=== PATIENT | male | born 1945 | race Caucasian/White ===

== ENCOUNTER 2017-04-21 14:08 | Emergency (ER) | payer MEDICARE ==
[~2017-04-21] VITALS: Ht 177.8 cm; Wt 65.8 kg
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
--- NOTE | 2017-04-21 14:54 | NUR ---
MD FIERRO AT BEDSIDE
--- NOTE | 2017-04-21 15:00 | NUR ---
PAGEH[facility] LICONA, TRANSFERRED CALL TO
--- NOTE | 2017-04-21 15:29 | NUR ---
AMBULANCE ETA [phone]
--- NOTE | 2017-04-21 15:54 | NUR ---
REPORT GIVEN TO RN FROM SN[facility]
[2017-04-21 15:55] VITALS: BP 130/80
== END 2017-04-21 15:56 | disposition home or self-care (01) ==
LOC: ER 14:13
DX: Z46.59 Encounter for fitting and adjustment of other gastrointestinal appliance and device (principal); Z93.1 Gastrostomy status; E11.9 Type 2 diabetes mellitus without complications; Z88.0 Allergy status to penicillin; E78.5 Hyperlipidemia, unspecified; K21.9 Gastro-esophageal reflux disease without esophagitis; F10.10 Alcohol abuse, uncomplicated
CPT/HCPCS: 99283; A4606; Z7610

== ENCOUNTER 2018-07-05 15:54 | Emergency (ER) | payer MEDICARE, BC ==
[~2018-07-05] VITALS: Ht 167.6 cm; Wt 70.8 kg
[~2018-07-05 15:54] MED LIST: FAMO20TA8 PO; FOLI1TAB16 PO; GABA-534 PO; INSU300I SQ; LISI10TA5 PO; METF500T7 PO; QUET25TA PO; SULF1TAB48 PO
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
--- NOTE | 2018-07-05 17:45 | NUR ---
PT TO CT VIA [facility].
[2018-07-05] MEDS ORDERED: IV NS 0.9% 1,000 ML BAG IV ONE (18:00)
[2018-07-05] MEDS ORDERED: TDAP [DIPH/PERTUSSIS/TET] 0.5 ML VIAL IM ONE ×2 (18:00→18:15)
[2018-07-05 18:10] LABS: BASOPHILS # (AUTO) 0.1 /CMM (0.0-0.2); BASOPHILS % (AUTO) 1.3 % (0.0-2.0); EOSINOPHILS % (AUTO) 1.8 % (0.0-6.0); HEMATOCRIT 43 % (39-51); HEMOGLOBIN 14.5 g/dL (13.5-17.5); LYMPHOCYTES # (AUTO) 1.8 /CMM (0.8-4.8); LYMPHOCYTES % (AUTO) 28.7 % (20.0-44.0); MEAN CORPUSCULAR HGB CONC 34 g/dl (31.0-36.0); MEAN CORPUSCULAR VOLUME 101 fL (80-96); MONOCYTES # (AUTO) 0.7 /CMM (0.1-1.30); MONOCYTES % (AUTO) 11.4 % (2.0-12.0); NEUTROPHILS # (AUTO) 3.6 /CMM (1.8-8.9); NEUTROPHILS % (AUTO) 56.8 % (43.0-81.0); PLATELET COUNT (AUTO) 150 /CMM (150-450); WHITE BLOOD COUNT (AUTO) 6.4 K/uL (4.3-11.0)
[2018-07-05 18:16] LABS: CALCIUM, SERUM 8.4 mg/dL (8.5-10.1); CARBON DIOXIDE 21 mmol/L (21-32); CHLORIDE 102 mmol/L (98-107); CREATININE 0.7 mg/dL (0.6-1.3); GLUCOSE 275 mg/dL (74-106); POTASSIUM 3.6 mmol/L (3.5-5.1); SODIUM SERUM 140 mmol/L (136-145); UREA NITROGEN, BLOOD 14 mg/dL (7-18)
[2018-07-05 18:30] LABS: ALANINE AMINOTRANSFERASE 78 U/L (12-78); ALBUMIN 3.6 g/dL (3.4-5.0); ALCOHOL, BLOOD 227 mg/dL (0-0); ALKALINE PHOSPHATASE 139 U/L (46-116); ASPARTATE AMINOTRANSFERASE 58 U/L (15-37); BILIRUBIN,DIRECT 0.2 mg/dL (0.0-0.2); BILIRUBIN,TOTAL 0.4 mg/dL (0.2-1.0); TOTAL PROTEIN, SERUM 6.9 g/dL (6.4-8.2)
[2018-07-05 18:34] LABS: SALICYLATE 2.2 mg/dL (2.8-20.0)
[2018-07-05 18:35] LABS: ACETAMINOPHEN < 5 ug/ml (10-30)
--- NOTE | 2018-07-05 18:35 | NUR ---
PT LAYING ON GURNEY, CALM & COOPERATIVE. DENIES LAWSON, DIZZINESS, N/V, VISUAL CHANGES, NUMBNESS/TINGLING SENSATION @ THIS TIME. WILL CONT TO MONITOR.
[2018-07-05] MEDS ORDERED: LORAZEPAM INJ 2 MG/ML VIAL ONE (18:55)
--- NOTE | 2018-07-05 18:59 | NUR ---
PT GETTING ANXIOUS, MEDICATED PER ERMD ORDER, PT BRIANNA WELL. LAC ON BACK OF HEAD REPAIRED BY DR. YOAN Brown/ [place]. EMT APPLIED DRESSING, NO ACTIVE BLEEDING NOTED @ THIS TIME. WILL CONT TO MONITOR.
[2018-07-05] MEDS ORDERED: LORAZEPAM INJ 2 MG/ML VIAL IV ONE (19:00)
--- NOTE | 2018-07-05 20:10 | NUR ---
Patient is resting comfortably in bed with eyes closed. Easily aroused. VSS
--- NOTE | 2018-07-05 21:35 | NUR ---
Patient discharged to home in stable condition. Written and verbal after care instructions given. Patient verbalizes understanding of instruction. PT AMB WITH STEADY GAIT UPON LEAVING ED. IV removed. Catheter intact and site benign. Pressure and 4x4 applied to site. No bleeding noted.
[2018-07-05 21:37] VITALS: BP 127/75
== END 2018-07-05 21:37 | disposition home or self-care (01) ==
LOC: ER 15:55
DX: S01.01XA Laceration without foreign body of scalp, initial encounter (principal); S50.02XA Contusion of left elbow, initial encounter; I42.9 Cardiomyopathy, unspecified; E78.5 Hyperlipidemia, unspecified; R13.10 Dysphagia, unspecified; K21.9 Gastro-esophageal reflux disease without esophagitis; E11.9 Type 2 diabetes mellitus without complications; R26.2 Difficulty in walking, not elsewhere classified; F10.10 Alcohol abuse, uncomplicated; Y90.7 Blood alcohol level of 200-239 mg/100 ml; Z86.711 Personal history of pulmonary embolism; Z98.890 Other specified postprocedural states; Z88.0 Allergy status to penicillin; Z60.2 Problems related to living alone; Z79.4 Long term (current) use of insulin; W18.39XA Other fall on same level, initial encounter; Y93.89 Activity, other specified; Y92.89 Other specified places as the place of occurrence of the external cause; Y99.8 Other external cause status
CPT/HCPCS: 12002; 36415; 70450 ×2; 72125; 73080; 80048; 80076; 80307; 80329; 85025; 90471; 90715; 96374; 99284; G0480; J2060; J7030

== ENCOUNTER 2018-07-06 19:24 | Emergency (ER) | payer MEDICARE, BC ==
[~2018-07-06] VITALS: Ht 177.8 cm; Wt 68.0 kg
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
--- NOTE | 2018-07-06 19:36 | NUR ---
DAVID (DAUGHTER) CONTACT INFORMATION:
[2018-07-06] MEDS ORDERED: ACETAMINOPHEN ES 500 MG TABLET ONE (20:25)
[2018-07-06] MEDS ORDERED: ACETAMINOPHEN ES 500 MG TABLET PO ONE (20:30)
--- NOTE | 2018-07-06 21:15 | NUR ---
Kristina riley in [facility] - 07/06/18 at 2229 by LIAM Patient discharged to home in stable condition. Written and verbal after care instructions given. Patient verbalizes understanding of instruction.
--- NOTE | 2018-07-06 21:15 | NUR ---
PT SET FOR DISCHARGE, WILL REQUEST TRANSPORT BACK TO FACILITY DUE TO FALL RISK
--- NOTE | 2018-07-06 21:27 | NUR ---
[facility] TRIP NUMBER [id number] ETA [id number]
--- NOTE | 2018-07-06 21:52 | NUR ---
PT WALKING AROUND, TRYING TO LEAVE. ENCOURAGED HIM BACK TO HIS ROOM AND PROVIDED HIM WITH WATER.
--- NOTE | 2018-07-06 22:12 | NUR ---
REPORT GIVEN TO [facility] EMT FOR TRANSPORT
--- NOTE | 2018-07-06 22:15 | NUR ---
Patient discharged to home in stable condition. Written and verbal after care instructions given. Patient verbalizes understanding of instruction.
[2018-07-06 22:29] VITALS: BP 153/77
== END 2018-07-06 22:30 | disposition home or self-care (01) ==
LOC: ER 19:26
DX: S01.81XA Laceration without foreign body of other part of head, initial encounter (principal); S41.112A Laceration without foreign body of left upper arm, initial encounter; I42.9 Cardiomyopathy, unspecified; E78.5 Hyperlipidemia, unspecified; R13.10 Dysphagia, unspecified; K21.9 Gastro-esophageal reflux disease without esophagitis; E11.9 Type 2 diabetes mellitus without complications; R26.2 Difficulty in walking, not elsewhere classified; F10.10 Alcohol abuse, uncomplicated; F17.200 Nicotine dependence, unspecified, uncomplicated; Y90.9 Presence of alcohol in blood, level not specified; Z60.2 Problems related to living alone; Z79.4 Long term (current) use of insulin; Z98.890 Other specified postprocedural states; Z88.0 Allergy status to penicillin; W18.09XA Striking against other object with subsequent fall, initial encounter; Y93.89 Activity, other specified; Y92.89 Other specified places as the place of occurrence of the external cause; Y99.8 Other external cause status
CPT/HCPCS: 70450-TC; 70486-TC; 72125-TC